=== PATIENT | male | born 1975 | race Caucasian/White ===

== ENCOUNTER 2023-08-12 16:25 | Emergency (ER) | payer OTHER, SELFPAY ==
[2023-08-12 16:31] VITALS: BP 181/107
[2023-08-12 17:07] LABS: % Basophils 0.8 % (0-2); % Eosinophils 0.3 % (0-6); % Immature Granulocytes 0.1 % (0-0.5); % Lymphocytes 22.5 % (20.5-51.1); % Monocytes 5.5 % (1.7-9.3); % Neutrophils 70.8 % (42.2-75.2); Absolute Basophils 0.1 10^3/uL (0-0.2); Absolute Lymphocytes 1.7 10^3/uL (1.2-3.4); Absolute Monocytes 0.4 10^3/uL (0.1-0.6); Absolute Neutrophils 5.3 10^3/uL (1.4-6.5); Hematocrit 43.4 % (39.0-52.0); Hemoglobin 14.7 g/dL (13.0-18.0); Mean Corp Hgb Conc. 33.9 g/dL (33.0-37.0); Mean Corpuscular Hgb 30.1 pg (27.0-31.0); Mean Corpuscular Volume 88.9 fL (80.0-94.0); Mean Platelet Volume 9.2 fL (7.4-10.4); Nucleated Red Blood Cells % 0 % (-); Platelet Count 284 10^3/uL (130-400); Red Blood Cell Count 4.88 10^6/uL (4.70-6.10); Red Cell Dist. Width 13.4 % (11.5-14.5); White Blood Cell Count 7.5 10^3/uL (4.8-10.8)
[2023-08-12 17:20] LABS: ALT (SGPT) 23 U/L (0-50); AST (SGOT) 23 U/L (17-59); Albumin 4.9 g/dl (3.5-5.0); Alkaline Phosphatase 47 U/L (38-126); Blood Urea Nitrogen 13 mg/dl (9-20); Calcium 9.3 mg/dl (8.4-10.2); Carbon Dioxide 24 mmol/L (22-30); Chloride 108 mmol/L (98-107); Glucose 100 mg/dl (70-99); Potassium 4.1 mmol/L (3.5-5.1); Sodium 141 mmol/L (135-145); Total Bilirubin 0.7 mg/dl (0.2-1.3); Total Protein 8.2 g/dl (6.3-8.2); eGFR > 60.00
[2023-08-12 17:32] LABS: Troponin I < 0.012 ng/ml
[2023-08-12 18:02] VITALS: BP 165/89
[2023-08-12 18:06] VITALS: BP 146/90
[2023-08-12 18:31] VITALS: BMI 31.9
--- NOTE | 2023-08-12 19:18 | ED.GENMED ---
History of Present Illness
General
Chief Complaint: Blood Pressure Problem
Source: patient
Exam Limitations: none
Time Seen by Provider: 08/12/23 18:09
Travel History
Have you had any contact with someone who has COVID-19?: No
Do you have any symptoms of coronavirus? Fever > 100 degrees, chills, cough, shortness of breath, sore throat, loss of taste or smell, muscle aches, or headache?: No
History of Present Illness
History of Present Illness:
48-year-old male started with some tingling in his left third and fourth finger 4 days ago. This was persistent for 1 to 2 days. This was followed by some palpitations. Today he had some mild discomfort in his upper chest. Concern for his blood
pressure. Symptoms are minimal at this time. Patient took a long walk 2 days ago without difficulty.
Past History
Past History
ED Past Medical History: Other (Kidney stone)
ED Past Surgical History: None
Social History
Tobacco: Non-smoker
Living: with family
Family History
Family History: CAD
Review of Systems
Review of Systems
All Other Systems: Not applicable
Phy Exam
Physical Exam
Physical Exam:
GENERAL: Alert and oriented in no apparent distress
EYE: Orbits normal.
NECK: Supple
CARDIAC: Regular rate and rhythm without any obvious murmurs.
LUNGS: Clear breath sounds,normal
ABDOMEN: Soft, without focal tenderness or distention
NEUROLOGICAL: Alert and oriented , cranial nerves II through XII intact. Speech normal. Mobile Designer normal. Nonfocal. Light touch intact.
SKIN: Warm and dry, no rash or lesion, no discoloration, skin intact.
MUSCULOSKELETAL: No edema,no deformity.Good color
PSYCH: Normal and appropriate interaction.
Course
Orders/Labs/Results
Orders:
Orders
08/12/23 16:35
EKG [Electrocardiogram (*1)] Urgent
Reason for Study: Chest Pain
EKG- Treatment ONCE
08/12/23 16:39
CBC/With Diff [Complete Blood Count/With Diff] Urgent
CMP [Comprehensive Metabolic Panel] Urgent
Troponin I Urgent
08/12/23 18:25
EKG- Treatment ONCE
CR Chest - 2 Views Urgent
Comment:
Reason For Exam: cp
08/12/23 20:00
Electrocardiogram (*1) Stat
Reason for Study: Other
Other Reason for Exam: chest pain
08/12/23 20:07
Troponin I Urgent
Abnormal Lab Results
08/12/23
16:39
Chloride 108 H mmol/L
(98-107)
Glucose 100 H mg/dl
(70-99)
08/12/23 16:39
08/12/23 16:39
Vital Signs
Initial and Last Documented VS:
Initial Vital Signs
Temp Pulse Resp BP Pulse Ox
98.0 F 86 18 181/107 99
08/12/23 16:31 08/12/23 16:31 08/12/23 16:31 08/12/23 16:31 08/12/23 16:31
Last Documented Vital Signs
Temp Pulse Resp BP Pulse Ox
98 F 80 16 159/97 98
08/12/23 18:14 08/12/23 21:00 08/12/23 21:00 08/12/23 21:00 08/12/23 21:00
MDM/Problems Addressed
Differential Diagnosis Includes:
Patient's paresthesias in the left third and fourth finger not consistent with strokelike symptoms. Neurologically stable and intact. No indication for CT of the head at this time. As for the brief chest pain. Patient does have a history of
hypertension and family history. Initial EKG and troponin negative. Clinically stable. Took a long walk 2 days ago without issues however. For completeness repeat troponin and EKG will be done. If all stable follow-up closely with cardiology.
*Critical Care Note
Total Time (30-74mins, 75-104mins- exclusive of procedures): Not Applicable
Update Note
Update Note:
Repeat EKG normal sinus rhythm at 63. No acute changes. Await troponin if negative stable for discharge to follow-up with cardiology
ED Attending Note
-
Portions of this chart may have been created with voice recognition software.� Occasional wrong word or��sound alike� substitutions may have occurred due to the inherent limitations of voice recognition software.
Discharge Plan
Departure
Patient Disposition: Home (Routine Discharge)
Date of Disposition: 08/12/23
Time of Disposition: 20:53
Patient with high blood pressure during this ER visit?: Yes
Discharge Problem:
Anterior chest pain, Left arm paresthesia
Instructions: Paresthesia (DC), Chest Pain DCA Follow Up, BLOOD PRESSURE
Prescriptions:
No Action
No Current Medications
lisinopril 10 mg Tablet
10 mg PO DAILY
Interventions
Interventions:
*Risk Screen - Suicide Last Done: 08/12/23 16:31
*General Assessment Last Done: 08/12/23 16:31
*Neglect/Abuse Screening Last Done: 08/12/23 16:31
*ED COVID-19 Vaccine History Last Done: 08/12/23 16:31
*Nursing Disposition Last Done: 08/12/23 21:03
ED- Cardiac Assessment Last Done: 08/12/23 18:06
ED- Neurological Assessment Last Done: 08/12/23 18:06
ED- Pulmonary Assessment Last Done: 08/12/23 18:06
Discharge Date and Time
Discharge Date/Time: 08/12/23 21:25
Print Language: KOREAN
[2023-08-12 20:38] LABS: Troponin I < 0.012 ng/ml
[2023-08-12 21:00] VITALS: BP 159/97
== END 2023-08-12 21:25 | disposition home or self-care (01) ==
LOC: EMR 16:25
PROVIDERS: Emergency Medicine; EMERGENCY PHYSICIAN Emergency Medicine; FAMILY PHYSICIAN Physician Assistant Medical
DX: R07.9 Chest pain, unspecified (principal); R20.2 Paresthesia of skin; R00.2 Palpitations
CPT/HCPCS: 99285; 71046; 80053; 84484; 85025; 93005

== ENCOUNTER → 2023-09-26 09:48 | Outpatient (REF) | payer OTHER, SELFPAY | LOC: RCS 09:48 | PROVIDERS: ATTENDING PHYSICIAN Internal Medicine Cardiovascular Disease; FAMILY PHYSICIAN Student in an Organized Health Care Education/Training Program | DX: R07.2 Precordial pain (principal) | CPT/HCPCS: 93017; 93350 ==